=== PATIENT | female | born 1995 | race Caucasian/White ===

== ENCOUNTER 2016-11-10 12:38 | Emergency (ER) | payer OTHER ==
[2016-11-10 12:39] VITALS: BMI 21.4
[2016-11-10 12:51] VITALS: BP 121/66; PULSE 86; TEMP 98.2; O2SAT 100
[2016-11-10 13:46] LABS: RBC URINE 1 /hpf (0-3); URINE BILIRUBIN NEGATIVE (NEGATIVE); URINE BLOOD NEGATIVE (NEGATIVE); URINE COLOR Yellow (YELLOW); URINE GLUCOSE (UA) NORMAL (Normal); URINE KETONE NEGATIVE (NEGATIVE); URINE LEUKOCYTE ESTERASE TRACE Leu/uL (Negative); URINE PROTEIN NEGATIVE (NEGATIVE); URINE UROBILINOGEN NORMAL mg/dL (0.2-1.0); WBC URINE 5 /hpf (0-5)
[2016-11-10 14:28] LABS: BASO % 0.7 % (0.0-2.0); EOS # 0.1 K/uL (0.0-0.7); EOS % 0.9 % (0.0-4.0); HEMATOCRIT 38.8 % (34.0-47.0); MEAN CELL VOLUME 91.6 fL (81.0-99.0); MEAN CORPUSCULAR HEMOGLOBIN 30.4 pg (27.0-31.0); MEAN CORPUSCULAR HGB CONC 33.2 g/dL (33.0-37.0); MEAN PLATELET VOLUME 7.1 fL (7.2-11.7); MONO # 0.4 K/uL (0.0-0.8); MONO % 7.3 % (0.0-10.0); NRBC % 0.1 % (0.0-2.0); RED CELL DISTRIBUTION WIDTH 13.6 % (11.5-14.5); WHITE BLOOD COUNT 6.1 K/uL (4.8-10.8)
[2016-11-10 14:37] LABS: CHLORIDE 101 mmol/L (98-107); POTASSIUM 3.4 mmol/L (3.6-5.2); SODIUM 136 mmol/L (132-148)
[2016-11-10 14:39] LABS: AST/SGOT 18 U/L (14-36); BILIRUBIN,TOTAL 0.8 mg/dL (0.2-1.3); CARBON DIOXIDE 23 mmol/L (22-30); GFR AFRICAN-AMERICAN > 60
[2016-11-10 14:40] LABS: ALB/GLOB RATIO 1.2 (1.0-2.1); ALKALINE PHOSPHATASE 46 U/L (38-126); ALT/SGPT 20 U/L (9-52); BLOOD UREA NITROGEN 11 mg/dL (7-17); CALCIUM 8.7 mg/dl (8.6-10.4); GLUCOSE,RANDOM 82 mg/dL (65-105); TOTAL PROTEIN 7.2 g/dL (6.3-8.3)
--- NOTE | 2016-11-10 15:18 | C.PDOC ---
History Of Present Illness 21-year-old female, presents to the emergency department with complaints of pelvic pain x1 week, that is associated with urinary frequency. Denies any nausea/vomiting/diarrhea. Time Seen by Provider: 11/10/16 13:12 Chief Complaint (Nursing): Abdominal Pain History Per: Patient History/Exam Limitations: no limitations Onset/Duration Of Symptoms: Days Current Symptoms Are (Timing): Still Present Past Medical History Reviewed: Historical Data, Nursing Documentation, Vital Signs Vital Signs: Last Vital Signs Temp 98.2 F 11/10/16 12:50 Pulse 86 11/10/16 12:50 Resp 20 11/10/16 18:03 BP 121/66 11/10/16 12:50 Pulse Ox 100 11/10/16 18:58 - Medical History PMH: Gastritis Family History: States: Unknown Family Hx - Social History Hx Tobacco Use: No Hx Alcohol Use: No Hx Substance Use: No - Immunization History Hx Tetanus Toxoid Vaccination: No Hx Influenza Vaccination: No Hx Pneumococcal Vaccination: No Review Of Systems Except As Marked, All Systems Reviewed And Found Negative. Constitutional: Negative for: Fever, Chills Cardiovascular: Negative for: Chest Pain Gastrointestinal: Positive for: Abdominal Pain. Negative for: Vomiting Genitourinary: Negative for: Vaginal Discharge, Vaginal Bleeding Skin: Negative for: Rash Neurological: Negative for: Weakness, Numbness, Headache, Dizziness Physical Exam - Physical Exam Appears: Non-toxic, No Acute Distress Skin: Warm, Dry, No Rash Eye(s): bilateral: Normal Inspection, PERRL Nose: Normal Oral Mucosa: Moist Lips: Normal Appearing Neck: Normal ROM Cardiovascular: Rhythm Regular Respiratory: Normal Breath Sounds, No Accessory Muscle Use Gastrointestinal/Abdominal: Soft, No Tenderness Extremity: Normal ROM Neurological/Psych: Oriented x3, Normal Speech ED Course And Treatment - Laboratory Results Result Diagrams: 11/10/16 14:22 11/10/16 14:22 O2 Sat by Pulse Oximetry: 100 - CT Scan/US CT ABD/PEL Other Rad Studies (CT/US): Read By Radiologist, Radiology Report Reviewed CT/US Interpretation: Accession No. : [id number]. Patient Name / ID : AMRITA BUTLER / [id number]. Exam Date : 11/10/2016 16:48:11 ( Approved ). Study Comment : Sex / Age : F / 21Y. Creator : Paul Craven MD. Dictator : Paul Craven MD. Residential Caregiver : Nursing Teacher : Paul Craven MD. Approver2 : Report Date : 11/10/2016 17:44:55. My Comment : . HISTORY: Positive test. Presenting with pelvic pain. LMP 2016. COMPARISON: None available. TECHNIQUE: Transabdominal, transvaginal. Real -time technique with 2D, duplex and color Doppler. FINDINGS: UTERUS: Measures 3.9 x 5.2 x 7.1 cm. Normal in size and appearance. No fibroid or other mass lesion seen. ENDOMETRIUM: Measures 13.6 mm in diameter. Small cystic structure perhaps early gestational sac. No pole or yolk sac identified. CERVIX: No cervical abnormality identified. RIGHT OVARY: Measures 2.2 x 3.6 cm. No solid mass. Normal flow. Simple cyst 2.2 x 3.8 x 4.4 cm. LEFT OVARY: Measures 1.9 x 3 cm. No solid mass. Normal flow. Multiple subcentimeter follicles. FREE FLUID: No significant free fluid noted. OTHER FINDINGS: None. IMPRESSION: Thickened endometrium, of possible early gestational sac without yolk sac or pole. Dominant simple cyst right ovary. Progress Note: Plan: Urine preg/UA. Reassess and Disposition. Progress: Patients urine is (+) for . Type and Screen. CMP, Beta HCG. CBC, Pelvic US ordered. Impression: possible early , no IUP seen on US, beta HCG low. Patient was instructed to f/u with OBGYN or return to ED in 1 week to repeat beta HCG and US. Disposition - Disposition Disposition: HOME/ ROUTINE Disposition Time: 18:18 Condition: STABLE Additional Instructions: Follow up with PMD within 1-2 days. Return to ED if feel worse. Return to ED in 1 week to repeat Beta HCG and US. Prescriptions: Multivit/Folic Acid/I [ Plus] 1 tab PO DAILY #30 tab Instructions: (ED) - Clinical Impression Clinical Impression: Pelvic pain affecting - Scribe Statement The provider has reviewed the documentation as recorded by the Sharaibstephany Ferris All medical record entries made by the Sharaibe were at my direction and personally dictated by me. I have reviewed the chart and agree that the record accurately reflects my personal performance of the history, physical exam, medical decision making, and the department course for this patient. I have also personally directed, reviewed, and agree with the discharge instructions and disposition.
--- NOTE | 2016-11-10 17:46 | US ---
HISTORY: Positive test. Presenting with pelvic pain. LMP 09/12/2016. COMPARISON: None available. TECHNIQUE: Transabdominal, transvaginal. Real -time technique with 2D, duplex and color Doppler. FINDINGS: UTERUS: Measures 3.9 x 5.2 x 7.1 cm. Normal in size and appearance. No fibroid or other mass lesion seen. ENDOMETRIUM: Measures 13.6 mm in diameter. Small cystic structure perhaps early gestational sac. No pole or yolk sac identified. CERVIX: No cervical abnormality identified. RIGHT OVARY: Measures 2.2 x 3.6 cm. No solid mass. Normal flow. Simple cyst 2.2 x 3.8 x 4.4 cm. LEFT OVARY: Measures 1.9 x 3 cm. No solid mass. Normal flow. Multiple subcentimeter follicles. FREE FLUID: No significant free fluid noted. OTHER FINDINGS: None. IMPRESSION: Thickened endometrium, of possible early gestational sac without yolk sac or pole. Dominant simple cyst right ovary.
[2016-11-10 19:04] VITALS: RESP 20
== END 2016-11-10 18:03 | disposition home or self-care (01) ==
LOC: C.ER 12:38
DX: O26.891 Other specified pregnancy related conditions, first trimester (principal); R10.2 Pelvic and perineal pain; Z3A.00 Weeks of gestation of pregnancy not specified

== ENCOUNTER 2016-11-17 09:32 | Emergency (ER) | payer MEDICAID, OTHER ==
[2016-11-17 09:41] VITALS: BMI 21.5
[2016-11-17 09:44] VITALS: O2SAT 99
--- NOTE | 2016-11-17 10:48 | C.PDOC ---
History Of Present Illness 21 y/o female presents to the ED with complains of mid lower/suprapubic abdominal pain intermittently for the past 2 weeks. Pain occasionally radiates to back, and is worse when at rest. Pt also reports episode of vaginal bleeding after a dog "hit her stomach," resolved 2 days ago. LMP in August. Pt seen here 1 week ago for pelvic pain and dysuria, (+) for . Denies urinary symptoms, fever, vomiting, vaginal bleeding or any other complaints. Time Seen by Provider: 11/17/16 10:21 Chief Complaint (Nursing): Abdominal Pain History Per: Patient History/Exam Limitations: no limitations Onset/Duration Of Symptoms: Days, Intermittent Episodes Current Symptoms Are (Timing): Still Present Severity: Mild Location Of Pain/Discomfort: Suprapubic Radiation Of Pain To:: Back Quality Of Discomfort: "Pain" Associated Symptoms: Back Pain. denies: Fever, Vomiting, Urinary Symptoms Recent travel outside of the [place]: No Abnormal Vaginal Bleeding: No Past Medical History Reviewed: Historical Data, Nursing Documentation, Vital Signs Vital Signs: Last Vital Signs Temp 97.9 F 11/17/16 14:20 Pulse 90 11/17/16 14:20 Resp 18 11/17/16 14:20 BP 108/70 11/17/16 14:20 Pulse Ox 99 11/17/16 14:20 - Medical History PMH: Gastritis Family History: States: Unknown Family Hx - Social History Hx Tobacco Use: No Hx Alcohol Use: No Hx Substance Use: No - Immunization History Hx Tetanus Toxoid Vaccination: No Hx Influenza Vaccination: No Hx Pneumococcal Vaccination: No Review Of Systems Except As Marked, All Systems Reviewed And Found Negative. Constitutional: Negative for: Fever Gastrointestinal: Positive for: Abdominal Pain. Negative for: Nausea, Vomiting , Diarrhea Genitourinary: Negative for: Dysuria, Vaginal Discharge, Vaginal Bleeding Physical Exam - Physical Exam Appears: Non-toxic, No Acute Distress Skin: Warm, Dry, No Rash Head: Atraumatic, Normacephalic Neck: Normal, Normal ROM, Supple Chest: Symmetrical Cardiovascular: Rhythm Regular, No Murmur Respiratory: Normal Breath Sounds, No Rales, No Rhonchi, No Wheezing Gastrointestinal/Abdominal: Normal Exam, Soft, No Tenderness Back: Normal Inspection, No CVA Tenderness Extremity: Normal ROM Extremity: Bilateral: Atraumatic Neurological/Psych: Oriented x3, Normal Speech ED Course And Treatment - Laboratory Results Result Diagrams: 11/17/16 12:00 11/17/16 12:00 O2 Sat by Pulse Oximetry: 99 (room air) Pulse Ox Interpretation: Normal - CT Scan/US US OB/transvaginal Other Rad Studies (CT/US): Read By Radiologist, Radiology Report Reviewed CT/US Interpretation: Accession No. : [id number]. Patient Name / ID : AMRITA BUTLER / [id number]. Exam Date : 11/17/2016 11:11:51 ( Approved ). Study Comment : Sex / Age : F / 21Y. Creator : Paul Craven MD. Dictator : Paul Craven MD. Remedial Masseur : Teacher'S Assistant : Paul Craven MD. Approver2 : Report Date : 11/17/2016 13:37:08. My Comment : . PROCEDURE: ultrasound. HISTORY: pelvic pain, preg. COMPARISON: .. TECHNIQUE: Standard protocol for this study/examination. FINDINGS: LMP: Unknown. Prior examinations from the current : TECHNIQUE: Real -time 2D imaging, duplex and color Doppler. FINDINGS: No pole identified. . Gestational age based on gestational sac measurement Under for range, below threshold for calculation of reliable gestational age based on mean sac measurement of 7.3 mm. Gestational age derived from LMP: Cannot be ascertained based in the absence of a reliable/ known LMP. MICHAEL based on LMP: Cannot be ascertained based in the absence of a reliable/ known LMP. MICHAEL based on biometry: No pole identified. Gestational concordance documented. Yolk sac identified. Uterus: Unremarkable. No Cervical abnormalities: Negative examination for cervical dilatation or effacement. Subchorionic hemorrhage: None. . ADNEXA: Right: 3 x 2.3 cm. Simple cyst 2.7 x 3.2 cm. Multiple subcentimeter follicles. Normal Doppler arterial waveform documented. Left: 1.6 x 2.8 cm. Multiple subcentimeter follicles. Normal Doppler arterial waveform documented. Fluid in the cul-de-sac: Trace free fluid identified in the pelvis/cul de sac. IMPRESSION: Findings consistent with early intrauterine gestation based on well-formed gestational sac and yolk sac. Medical Decision Making Medical Decision Making: Plan: labs, UA, US OB/transvaginal The case was discussed with Dr. Henao (OBGYN oncall) who has reviewed the ultrasound and states that ultrasound are concordant with the beta-hcg. She states that the patient can follow up with outpatient OBGYN within 1 week. Results were discussed with the patient and she will follow up with the OBGYN. On re-exam, the patient reports improvement of symptoms. Lungs are CTA, heart is RRR, abdomen is soft, non-tender and patient is tolerating PO well. Patient is ambulatory in the ED with steady gait. Follow up with the medical doctor within 1-2 days, Return if worsened. Disposition - Disposition Referrals: [facility] [Outside] Disposition: HOME/ ROUTINE Disposition Time: 14:01 Condition: GOOD Additional Instructions: Follow up with the OBGYN within 1-2 days without fail. return if worsened. Prescriptions: Acetaminophen [Tylenol] 325 mg PO Q6 PRN #30 tab PRN Reason: Pain, Mild (1-3) Instructions: (ED) - Clinical Impression Clinical Impression: Abdominal pain, - PA / SPEECH LANGUAGE PATHOLOGIST ASSISTANT / Resident Statement MD/DO has reviewed & agrees with the documentation as recorded. - Scribe Statement The provider has reviewed the documentation as recorded by the Scribstephany Richardson All medical record entries made by the Sharaibstephany were at my direction and personally dictated by me. I have reviewed the chart and agree that the record accurately reflects my personal performance of the history, physical exam, medical decision making, and the department course for this patient. I have also personally directed, reviewed, and agree with the discharge instructions and disposition.
[2016-11-17 11:41] LABS: RBC URINE 1 /hpf (0-3); URINE BILIRUBIN NEGATIVE (NEGATIVE); URINE BLOOD NEGATIVE (NEGATIVE); URINE COLOR Yellow (YELLOW); URINE GLUCOSE (UA) NORMAL (Normal); URINE KETONE NEGATIVE (NEGATIVE); URINE LEUKOCYTE ESTERASE NEG Leu/uL (Negative); URINE PROTEIN NEGATIVE (NEGATIVE); URINE UROBILINOGEN NORMAL mg/dL (0.2-1.0); WBC URINE 4 /hpf (0-5)
[2016-11-17 12:15] LABS: CHLORIDE 100 mmol/L (98-107); SODIUM 136 mmol/L (132-148)
[2016-11-17 12:16] LABS: POTASSIUM 3.3 mmol/L (3.6-5.2)
[2016-11-17 12:18] LABS: GFR AFRICAN-AMERICAN > 60
[2016-11-17 12:19] LABS: BLOOD UREA NITROGEN 11 mg/dL (7-17); CALCIUM 7.9 mg/dl (8.6-10.4); CARBON DIOXIDE 26 mmol/L (22-30); GLUCOSE,RANDOM 78 mg/dL (65-105)
[2016-11-17 12:52] LABS: BASO # 0.1 K/uL (0.0-0.2); BASO % 0.9 % (0.0-2.0); EOS # 0.1 K/uL (0.0-0.7); EOS % 1.3 % (0.0-4.0); HEMATOCRIT 37.8 % (34.0-47.0); LYMPH % 36.1 % (20.0-40.0); MEAN CELL VOLUME 91.2 fL (81.0-99.0); MEAN CORPUSCULAR HEMOGLOBIN 30.2 pg (27.0-31.0); MEAN CORPUSCULAR HGB CONC 33.1 g/dL (33.0-37.0); MEAN PLATELET VOLUME 7.4 fL (7.2-11.7); MONO # 0.4 K/uL (0.0-0.8); MONO % 7.6 % (0.0-10.0); NRBC % 0.1 % (0.0-2.0); RED CELL DISTRIBUTION WIDTH 13.7 % (11.5-14.5); WHITE BLOOD COUNT 5.5 K/uL (4.8-10.8)
--- NOTE | 2016-11-17 13:38 | US ---
PROCEDURE: ultrasound HISTORY: pelvic pain, preg COMPARISON: 11/10/2016.. TECHNIQUE: Standard protocol for this study/examination. FINDINGS: LMP: Unknown Prior examinations from the current : TECHNIQUE: Real-time 2D imaging, duplex and color Doppler. FINDINGS: No pole identified. Gestational age based on gestational sac measurement Under for range, below threshold for calculation of reliable gestational age based on mean sac measurement of 7.3 mm. Gestational age derived from LMP: Cannot be ascertained based in the absence of a reliable/ known LMP MICHAEL based on LMP: Cannot be ascertained based in the absence of a reliable/ known LMP MICHAEL based on biometry: No pole identified. Gestational concordance documented Yolk sac identified Uterus: Unremarkable. No Cervical abnormalities: Negative examination for cervical dilatation or effacement. Subchorionic hemorrhage: None ADNEXA: Right: 3 x 2.3 cm. Simple cyst 2.7 x 3.2 cm. Multiple subcentimeter follicles. Normal Doppler arterial waveform documented. Left: 1.6 x 2.8 cm. Multiple subcentimeter follicles. Normal Doppler arterial waveform documented Fluid in the cul-de-sac: Trace free fluid identified in the pelvis/cul de sac. IMPRESSION: Findings consistent with early intrauterine gestation based on well-formed gestational sac and yolk sac.
[2016-11-17 14:26] VITALS: BP 108/70; PULSE 90; RESP 18; TEMP 97.9
== END 2016-11-17 14:28 | disposition home or self-care (01) ==
LOC: C.ER 09:32
DX: O26.891 Other specified pregnancy related conditions, first trimester (principal); R10.30 Lower abdominal pain, unspecified; Z3A.00 Weeks of gestation of pregnancy not specified